=== PATIENT | male | born 1985 | race African-American/Black ===

== ENCOUNTER 2022-06-15 09:00 | Emergency (ER) | payer MEDICARE ==
[~2022-06-15] VITALS: Ht 185.4 cm; Wt 106.0 kg
[2022-06-15] MEDS ORDERED: ONDANSETRON HCL 4MG/2ML INJ IV STA (11:00)
[2022-06-15 12:03] LABS: CHLORIDE 111 mEq/L (98-107)
[2022-06-15 12:04] LABS: BASOPHILS % 0.5 % (0.0-2.0); EOSINOPHILS % 2.9 % (0.0-5.0); HEMATOCRIT. 43.3 % (42.0-52.0); HEMOGLOBIN. 14.5 g/dL (14.0-18.0); LYMPHOCYTES % 16.6 % (20.0-50.0); MEAN CORPUSCULAR HEMOGLOBIN 32.4 pg (28.0-32.0); MEAN CORPUSCULAR VOLUME 96.4 fL (80.0-94.0); MEAN PLATELET VOLUME 8.1 fl (7.4-10.4); MONOCYTES % 7.6 % (2.0-8.0); NEUTROPHILS % 72.4 % (40.0-76.0); PLATELET 240 x1000/uL (130-400); RED BLOOD CELL COUNT 4.49 mill/uL (4.7-6.1); RED CELL DISTRIBUTION WIDTH 13.7 % (11.6-14.6)
[2022-06-15 12:06] LABS: INR 1.1; PROTHROMBIN TIME 11.8 sec (9.6-11.0)
[2022-06-15 15:30] VITALS: BP 128/89
[2022-06-15 16:04] LABS: CLARITY URINE CLEAR (CLEAR); COLOR URINE YELLOW (YELLOW); KETONES URINE NEGATIVE (NEGATIVE); LEUKOCYTE ESTERASE URINE NEGATIVE (NEGATIVE); NITRITE URINE NEGATIVE (NEGATIVE); OCCULT BLOOD URINE NEGATIVE (NEGATIVE); PROTEIN URINE TRACE (NEGATIVE); SPECIFIC GRAVITY URINE 1.016 (1.005-1.030); UROBILINOGEN URINE 0.2 E.U./dL (0.2-1.0)
== END 2022-06-15 16:30 | disposition home or self-care (01) ==
LOC: ER 10:20
DX: J06.9 Acute upper respiratory infection, unspecified (principal)
CPT/HCPCS: 36415; 71045; 80053; 81003; 85025; 85610; 93005; 96374; 99285; J2405

== ENCOUNTER 2022-07-29 12:54 | Emergency (ER) | payer MEDICARE ==
[~2022-07-29] VITALS: Ht 185.4 cm; Wt 100.0 kg
[2022-07-29 13:03] VITALS: BP 135/82
[2022-07-29] MEDS ORDERED: CEPH500C2 MT (15:26)
[2022-07-29] MEDS ORDERED: BO1 TP (15:26)
== END 2022-07-29 15:48 | disposition home or self-care (01) ==
LOC: ER 12:54
DX: L03.114 Cellulitis of left upper limb (principal)
CPT/HCPCS: 99281; 99283

== ENCOUNTER 2023-04-28 21:34 | Emergency (ER) | payer MEDICARE, MEDICAID ==
[~2023-04-28] VITALS: Ht 185.4 cm; Wt 97.5 kg
[~2023-04-28 21:34] MED LIST: BO1 TP; CEPH500C2 MT
[2023-04-28 21:52] VITALS: O2SAT 100
[2023-04-28] MEDS ORDERED: KETOROLAC 60MG/2ML VIAL IM ONE (23:45)
[2023-04-28] MEDS ORDERED: AMOXICILLIN/POTASSIUM CLAVULANATE 875/125MG TAB PO ONE (23:45)
[2023-04-28] MEDS ORDERED: DEXAMETHASONE 4MG TABLET PO ONE (23:45)
[2023-04-28] MEDS ORDERED: ACETAMINOPHEN 325MG TABLET PO ONE (23:45)
[2023-04-28] MEDS ORDERED: AMOX1TAB16 MT (23:49)
[2023-04-28] MEDS ORDERED: ACET-2708 MT (23:49)
[2023-04-28] MEDS ORDERED: IBUP-2030 MT (23:49)
[2023-04-29 00:31] VITALS: BP 137/78; PULSE 66; RESP 17; TEMP 98.3
== END 2023-04-29 00:33 | disposition home or self-care (01) ==
LOC: ER 21:34
DX: K04.7 Periapical abscess without sinus (principal); J45.909 Unspecified asthma, uncomplicated
CPT/HCPCS: 99284; 96372; J8540; J1885